=== PATIENT | male | born 1985 | race Caucasian/White ===

== ENCOUNTER 2020-03-27 16:16 | Emergency (ER) | payer OTHER ==
[~2020-03-27] VITALS: Ht 182.9 cm; Wt 83.1 kg
[2020-03-27] MEDS ORDERED: LIDOCAINE 2% MDV 20ML VIAL SC ONE (16:45)
--- NOTE | 2020-03-27 16:59 | REPVR ---
PROCEDURE INFORMATION: Exam: XR Right Finger(s) Exam date and time: 03/27/2020 4:50 PM Age: 34 years old Clinical indication: Injury or trauma; Other: Laceration to thumb; Finger; Right; Additional info: Weight onto rigth thumb TECHNIQUE: Imaging protocol: XR Right fingers. Views: Minimum 2 views. COMPARISON: No relevant prior studies available. FINDINGS: Bones/joints: No definite fracture or dislocation. On the lateral view there is a small curvilinear density along the volar aspect of the head of the proximal phalanx of the thumb projecting inferior to the sesamoid bone. Soft tissues: Soft tissue swelling. IMPRESSION: No definite acute fractures identified however on the lateral view there is a curvilinear density volar aspect of the head of the proximal phalanx which could represent a small avulsion fracture or less likely radiopaque foreign body. Electronically signed by: Matilda aPce On 03/27/2020 16:59:47 PM
[2020-03-27 17:39] VITALS: BP 121/60
== END 2020-03-27 17:40 | disposition home or self-care (01) ==
LOC: M ED 16:16
DX: S62.501B Fracture of unspecified phalanx of right thumb, initial encounter for open fracture (principal); W23.1XXA Caught, crushed, jammed, or pinched between stationary objects, initial encounter; Y92.9 Unspecified place or not applicable; Y93.B3 Activity, free weights; Y99.9 Unspecified external cause status